=== PATIENT | female | born 1940 | race Caucasian/White ===

== ENCOUNTER → 2017-12-27 08:38 | Outpatient (CLI) | payer MEDICARE, SELFPAY ==
--- NOTE | 2017-12-27 08:45 | XR_ITS ---
XR DEXA axial skeleton HISTORY: ITS.REASON: OSTEOPENIA ORDERING PHYSICIAN: Nancy Lester MD PATIENT AGE: 77 years COMPARISON: 11/04/2011 FINDINGS: The BMD measured at the left femoral neck is 0.860 g/cm squared with a T score of T-1.3 . This is considered Osteopenic according to the World Health Organization criteria. Fracture risk is Moderate. Treatment is advised. The L1 L4 density has a T score of -1.1. There is an 5% increase in lumbar spine density and a 3% decrease in hip density compared to the previous exam. IMPRESSION: Osteopenia with moderate fracture risk. Recommend follow-up exam December 2019
--- NOTE | 2017-12-27 08:46 | MM_ITS ---
MM Dig screening mamm BI w/CAD CAD Screening COMPARISON: Digital mammograms 10/15/2013 and 05/11/2015 INDICATION: There is no personal or family history of breast cancer. There have been previous biopsies on each breast. TECHNIQUE: Standard CC and MLO images were obtained. R2 CAD reviewed. FINDINGS: Minimal stable fibroglandular densities are seen in the subareolar regions of both breasts. There are stable nodular densities in the upper outer quadrants of each breast. There is faint arterial calcification in each breast. There is a biopsy clip left breast and there are 2 biopsy clips right breast. There are benign-appearing calcifications in each breast. There are no suspicious microcalcifications. IMPRESSION: Stable exam with no suspicious lesion seen recommend yearly follow-up BI-RADS Category: 2 Benign Finding(s) RECOMMENDED FOLLOW-UP: 1YR - 1 YEAR FOLLOW-UP (A letter has been sent to the patient regarding results of the study.)
== END ==
PROVIDERS: PCP Family Medicine; Visit Provider Family Medicine
DX: M85.89 Other specified disorders of bone density and structure, multiple sites (principal); Z12.31 Encounter for screening mammogram for malignant neoplasm of breast
CPT/HCPCS: 77067; 77080

== ENCOUNTER → 2018-06-29 07:33 | Outpatient (CLI) | payer MEDICARE, SELFPAY ==
[2018-06-29 11:00] LABS: Alanine Aminotransferase 24 U/L (12-78); Albumin Level 3.9 gm/dL (3.4-5.0); Albumin/Globulin Ratio 1.1 (1.1-1.8); Alkaline Phosphatase 64 U/L (46-116); Anion Gap 10.7 mEq/L (5-15); Aspartate Amino Transferase 16 U/L (15-37); Bilirubin,Total 1.1 mg/dL (0.2-1.0); Blood Urea Nitrogen 20 mg/dL (7-18); Calcium 9.3 mg/dL (8.5-10.1); Carbon Dioxide 31 mmol/L (21.0-32.0); Chloride 106 mmol/L (98-107); Chol/HDL Ratio 3.8 (1-3.5); Cholesterol 145 mg/dL (140-200); Creatinine,Serum 0.87 mg/dL (0.55-1.02); Estimated Glomerular Filt Rate 63 ml/min (>60); GFR (African American) 76 ML/MIN (>60); Globulin 3.7 gm/dl (1.3-3.2); Glucose 111 mg/dL (74-106); HDL Cholesterol 38 mg/dL (29-89); LDL Cholesterol 82 mg/dL (0-130); Potassium 4.7 mmoL/L (3.5-5.1); Sodium 143 mmol/L (136-145); Thyroid Stimulating Hormone 3.39 uIU/ml (0.358-3.740); Total Protein,Serum 7.6 gm/dL (6.4-8.2); Triglycerides 127 mg/dL (30-200); VLDL Cholesterol 25 mg/dL (0-40)
== END ==
PROVIDERS: PCP Family Medicine; Visit Provider Physician Assistant
DX: E78.2 Mixed hyperlipidemia (principal); E03.9 Hypothyroidism, unspecified; I10 Essential (primary) hypertension
CPT/HCPCS: 36415; 80053; 80061; 84443

== ENCOUNTER → 2018-11-13 09:58 | Outpatient (POV) | payer MEDICARE, SELFPAY | PROVIDERS: Visit Provider Dermatology | DX: Z00.00 Encounter for general adult medical examination without abnormal findings (principal) ==

== ENCOUNTER 2018-11-20 09:20 | Outpatient (CLI) | payer MEDICARE, OTHER, SELFPAY ==
[2018-11-20 09:36] VITALS: BP 164/51; PULSE 57; RESP 18; TEMP 36.7; O2SAT 97
== END 2018-11-20 10:07 | disposition home or self-care (01) ==
LOC: INF 09:40
PROVIDERS: Visit Provider Physician Assistant
DX: M85.89 Other specified disorders of bone density and structure, multiple sites (principal)
CPT/HCPCS: 96372; J0897

== ENCOUNTER → 2018-12-24 13:51 | Outpatient (POV) | payer MEDICARE, SELFPAY | PROVIDERS: Visit Provider Nurse Practitioner Acute Care | DX: Z00.00 Encounter for general adult medical examination without abnormal findings (principal) ==

== ENCOUNTER 2019-06-11 10:02 | Outpatient (CLI) | payer MEDICARE, OTHER, SELFPAY ==
[2019-06-11 10:14] VITALS: BP 155/51; PULSE 54; RESP 18; TEMP 36.4; O2SAT 95
== END 2019-06-11 10:33 | disposition home or self-care (01) ==
LOC: INF 10:02
PROVIDERS: Visit Provider Physician Assistant
DX: M85.89 Other specified disorders of bone density and structure, multiple sites (principal)
CPT/HCPCS: 96372; J0897

== ENCOUNTER → 2020-08-12 14:34 | Outpatient (CLI) | payer MEDICARE, OTHER, SELFPAY ==
[2020-08-12 15:24] LABS: Basophils % 0.3 % (0.1-2.0); Eosinophils % 0.1 % (0.1-12.0); Hematocrit 49.6 % (37.0-47.0); Hemoglobin 16.3 g/dL (12.2-16.2); Lymphocytes # 2.6 K/mm3 (0.7-4.5); Lymphocytes % 19.1 % (10-50); Mean Corpuscular HGB Conc 32.9 g/dL (31.8-35.4); Mean Corpuscular Hemoglobin 28.7 pg (27.0-31.2); Mean Corpuscular Volume 87.4 fl (81-99); Mean Platelet Volume 8.4 fl (7.4-10.4); Monocytes # 0.7 K/mm3 (0.1-1.0); Monocytes % 5.1 % (1.7-9.3); Neutrophils # 10.3 K/mm3 (1.8-7.8); Neutrophils % 75.4 % (37.0-80.0); Platelet Count 336 K/mm3 (142-424); Red Blood Count 5.67 M/mm3 (4.20-5.40); Red Cell Distribution Width 13.5 % (11.5-17.5); White Blood Count 13.7 K/mm3 (4.8-10.8)
== END ==
PROVIDERS: Visit Provider Nurse Practitioner Family
DX: K52.9 Noninfective gastroenteritis and colitis, unspecified (principal)
CPT/HCPCS: 36415; 85025

== ENCOUNTER → 2021-09-01 11:09 | Outpatient (CLI) | payer MEDICARE, SELFPAY ==
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
== END ==
PROVIDERS: PCP Family Medicine; Visit Provider Family Medicine
DX: M79.672 Pain in left foot (principal)
CPT/HCPCS: 73630

== ENCOUNTER 2022-08-22 11:18 | Emergency (ER) | payer OTHER, MEDICARE, SELFPAY ==
[2022-08-22 11:20] VITALS: BP 144/58; PULSE 78; RESP 18; TEMP 36.7; O2SAT 95; BMI 32.8
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
--- NOTE | 2022-08-22 11:45 | PC.NURSE ---
ED MD AT BEDSIDE
--- NOTE | 2022-08-22 12:05 | PC.NURSE ---
PT TO XR/CT
--- NOTE | 2022-08-22 12:39 | PC.NURSE ---
PT MEDICATED PER EMAR, NO NEEDS AT THIS TIME. FAMILY AT BEDSIDE
[2022-08-22 12:45] VITALS: PULSE 74; O2SAT 96
[2022-08-22 13:00] VITALS: BP 144/66; PULSE 75; RESP 18; O2SAT 96
[2022-08-22 13:45] VITALS: BP 140/70; PULSE 80; RESP 18; O2SAT 95
[2022-08-22 14:00] VITALS: BP 173/85; PULSE 78; RESP 18; O2SAT 96
--- NOTE | 2022-08-22 14:17 | PC.NURSE ---
ED MD AT BEDSIDE TO DISCUSS POC WITH PT AND FAMILY
[2022-08-22 14:35] VITALS: BP 173/85; PULSE 78; RESP 18; TEMP 36.7; O2SAT 96
== END 2022-08-22 14:40 | disposition home or self-care (01) ==
PROVIDERS: Emergency Provider Emergency Medicine; PCP Emergency Medicine
DX: S42.211A Unspecified displaced fracture of surgical neck of right humerus, initial encounter for closed fracture (principal); V43.53XA Car driver injured in collision with pick-up truck in traffic accident, initial encounter; Z79.02 Long term (current) use of antithrombotics/antiplatelets; Z79.899 Other long term (current) drug therapy; I48.91 Unspecified atrial fibrillation
CPT/HCPCS: 70450; 72125; 73030; 73060; 73090; 96372; 99285

== ENCOUNTER 2022-08-25 11:36 | Emergency (ER) | payer OTHER, MEDICARE, SELFPAY ==
[2022-08-25 12:22] VITALS: BP 98/55; PULSE 93; RESP 18; TEMP 36.8; O2SAT 97; BMI 32.8
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
[2022-08-25 12:29] LABS: Microscopic, Urine URINE MICROSCOPIC (MICROSCOPIC)
[2022-08-25 12:31] VITALS: BP 108/54; PULSE 89; O2SAT 92
[2022-08-25 12:31] LABS: Appearance,Urine CLEAR (Clear); Bilirubin,Urine Negative (Negative); Blood, Urine 3+ (Negative); Color,Urine YELLOW (Yellow); Glucose,Urine (UA) Negative (Negative); Ketones,Urine TRACE (Negative); Leukocyte Esterase,Urine Negative (Negative); Nitrate,Urine Negative (Negative); Protein,Urine Negative (Negative); Specific Gravity, Urine 1.025 (1.005-1.030)
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
[2022-08-25 12:45] VITALS: BP 120/48; PULSE 84; RESP 20; O2SAT 93
[2022-08-25 12:47] LABS: Bacteria,Urine 1+ /lpf; Mucus,Urine Trace /lpf; RBC,Urine Occasional #/hpf (0-3)
[2022-08-25 13:11] LABS: Basophils # 0.1 K/mm3 (0-0.2); Basophils % 0.6 % (0.1-2.0); Eosinophils # 0.1 K/mm3 (0.0-0.4); Eosinophils % 0.6 % (0.1-12.0); Hematocrit 38.5 % (37.0-47.0); Hemoglobin 12.4 g/dL (12.2-16.2); Lymphocytes % 18.3 % (10-50); Mean Corpuscular HGB Conc 32.3 g/dL (31.8-35.4); Mean Corpuscular Hemoglobin 28.5 pg (27.0-31.2); Mean Corpuscular Volume 88.3 fl (81-99); Mean Platelet Volume 9.2 fl (7.4-10.4); Monocytes # 0.8 K/mm3 (0.1-1.0); Monocytes % 4.8 % (1.7-9.3); Neutrophils # 12.4 K/mm3 (1.8-7.8); Neutrophils % 75.7 % (37.0-80.0); Platelet Count 304 K/mm3 (142-424); Red Blood Count 4.36 M/mm3 (4.20-5.40); Red Cell Distribution Width 13.9 % (11.5-17.5); White Blood Count 16.4 K/mm3 (4.8-10.8)
[2022-08-25 13:14] LABS: MANUAL DIFFERENTIAL MANUAL DIFFERENTIAL (MANUAL DIFF)
[2022-08-25 13:29] LABS: Chloride 96 mmol/L (98-107); Potassium 3.9 mmoL/L (3.5-5.1); Sodium 132 mmol/L (136-145)
[2022-08-25 13:31] LABS: Blood Urea Nitrogen 35 mg/dl (7-17); Creatinine Clearance Estimated 50 mL/min (50-200); Estimated Glomerular Filt Rate 60 ml/min (>60); GFR (African American) 72 ML/MIN (>60)
[2022-08-25 13:32] LABS: Alanine Aminotransferase 26 U/L (12-78); Albumin Level 3.7 g/dl (3.5-5.0); Albumin/Globulin Ratio 1.2 (1.1-1.8); Alkaline Phosphatase 53 U/L (38-126); Anion Gap 12.9 mEq/L (5-15); Aspartate Amino Transferase 38 U/L (14-36); Bilirubin,Total 2.2 mg/dl (0.2-1.3); Calcium 8.9 mg/dl (8.4-10.2); Carbon Dioxide 27 mmol/L (22.0-30.0); Glucose 117 mg/dl (74-100); Total Protein,Serum 6.7 g/dl (6.3-8.2)
[2022-08-25 13:36] LABS: Lymphocytes % 15 % (10-50); Monocytes % 3 % (2-9); Neutrophils % 82 % (42-76); Platelet Estimate Normal; RBC Morphology Normal; Total Cells Counted 100
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
[2022-08-25 16:07] LABS: Occult Blood,Stool Positive (Negative)
[2022-08-25 16:56] VITALS: BP 120/50; PULSE 84; RESP 20; TEMP 36.8; O2SAT 96
== END 2022-08-25 16:57 | disposition home or self-care (01) ==
PROVIDERS: Emergency Provider Student in an Organized Health Care Education/Training Program; PCP Emergency Medicine
DX: K92.1 Melena (principal); M25.511 Pain in right shoulder; R07.81 Pleurodynia; R42 Dizziness and giddiness; R19.7 Diarrhea, unspecified; D72.829 Elevated white blood cell count, unspecified; R10.11 Right upper quadrant pain; R11.0 Nausea; I10 Essential (primary) hypertension; I48.91 Unspecified atrial fibrillation; E78.5 Hyperlipidemia, unspecified; J90 Pleural effusion, not elsewhere classified; Z79.01 Long term (current) use of anticoagulants; Z79.1 Long term (current) use of non-steroidal anti-inflammatories (NSAID); Z79.899 Other long term (current) drug therapy
CPT/HCPCS: 71045; 71260; 74177; 80053; 81001; 82272; 85007; 85025; 96361; 96374; 96375; 99285; G0328; J2405; Q9967

== ENCOUNTER 2022-08-27 10:34 | Emergency (ER) | payer MEDICARE, SELFPAY ==
[2022-08-27] VITALS (49 sets, daily range): BP systolic 0–222; BP diastolic 0–110; PULSE 0–107; RESP 0–24; TEMP -17.7–35.7; O2SAT 0–99; BMI 25.7; BMI 25.8
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
[2022-08-27 11:03] LABS: Basophils # 0.1 K/mm3 (0-0.2); Basophils % 0.6 % (0.1-2.0); Eosinophils # 0.1 K/mm3 (0.0-0.4); Eosinophils % 0.4 % (0.1-12.0); Lymphocytes # 5.8 K/mm3 (0.7-4.5); Lymphocytes % 28.7 % (10-50); Mean Corpuscular HGB Conc 31.8 g/dL (31.8-35.4); Mean Corpuscular Hemoglobin 28.6 pg (27.0-31.2); Mean Platelet Volume 9.4 fl (7.4-10.4); Monocytes # 0.8 K/mm3 (0.1-1.0); Monocytes % 3.8 % (1.7-9.3); Neutrophils # 13.5 K/mm3 (1.8-7.8); Neutrophils % 66.4 % (37.0-80.0); Platelet Count 387 K/mm3 (142-424); Red Blood Count 2.25 M/mm3 (4.20-5.40); Red Cell Distribution Width 14.3 % (11.5-17.5); White Blood Count 20.3 K/mm3 (4.8-10.8)
[2022-08-27 11:12] LABS: Hemoglobin 6.4 g/dL (12.2-16.2)
--- NOTE | 2022-08-27 11:12 | PC.NURSE ---
1111 CRITICAL H&H RECEIVED FROM LOUDON AT THIS TIME. 6.02/02.3 PT NAME AND R/V. DR. WILLIAM NOTIFIED AT THIS TIME
[2022-08-27 11:13] LABS: Hematocrit 20.3 % (37.0-47.0)
[2022-08-27 11:14] LABS: MANUAL DIFFERENTIAL MANUAL DIFFERENTIAL (MANUAL DIFF)
--- NOTE | 2022-08-27 11:15 | PC.NURSE ---
JAMI MCCULLOUGH at for central line placement warm blankets on pt.
[2022-08-27 11:24] LABS: Chloride 101 mmol/L (98-107); Sodium 132 mmol/L (136-145)
[2022-08-27 11:26] LABS: Alanine Aminotransferase 22 U/L (12-78); Alkaline Phosphatase 33 U/L (38-126); Aspartate Amino Transferase 31 U/L (14-36); Creatinine Clearance Estimated 37 mL/min (50-200); Estimated Glomerular Filt Rate 39 ml/min (>60); GFR (African American) 47 ML/MIN (>60)
[2022-08-27 11:27] LABS: Albumin Level 2.7 g/dl (3.5-5.0); Albumin/Globulin Ratio 1.3 (1.1-1.8); Calcium 7.9 mg/dl (8.4-10.2); Carbon Dioxide 16 mmol/L (22.0-30.0); Globulin 2.1 g/dL (1.3-3.2); Glucose 153 mg/dl (74-100); Lipase 431 U/L (23-300); Total Protein,Serum 4.8 g/dl (6.3-8.2)
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
[2022-08-27 11:32] LABS: Blood Urea Nitrogen 115 mg/dl (7-17); C-Reactive Protein 70.9 mg/L (0-4)
[2022-08-27 11:36] LABS: Lymphocytes % 29 % (10-50); Monocytes % 2 % (2-9); Neutrophils % 69 % (42-76); Total Cells Counted 100
[2022-08-27 11:38] LABS: Platelet Estimate Normal; RBC Morphology Normal
--- NOTE | 2022-08-27 11:40 | PC.NURSE ---
Critical lab values given to Dr Huang at 1134 face to face K+ 6.0 (verified with lab that specimen was no hemolyzed) BUN 115 Cre 1.3
--- NOTE | 2022-08-27 12:11 | ECG_ITS ---
APPROVED REPORT Exam: Resting ECG HR:76 bpm ECG Measurements Heart Rate 76 AXES QRSd 98 QRS 52 QT 411 T 254 QTc [address] DEVIATION AND MODERATE T-WAVE ABNORMALITY, CONSIDER INFERIOR ISCHEMIA [-0.1+ mV T-WAVE IN II/aVF] ABNORMAL ECG UNCONFIRMED REPORT Electronically signed by : Cole Lopez MD 09/01/2022 21:19:03
--- NOTE | 2022-08-27 12:35 | PC.NURSE ---
RECTAL TEMP of 95.3. pt currently has warming blanket(xavier hugger) on
--- NOTE | 2022-08-27 12:41 | PC.NURSE ---
1241 CRITICAL LACTIC 8.2 RECEIVED FROM ROBBINS IN LAB. PT PRACHI AND R/V. DR. BUNDY NOTIFIED
[2022-08-27 12:42] LABS: Lactic Acid 8.2 mmol/L (0.7-2.1)
--- NOTE | 2022-08-27 12:54 | PC.NURSE ---
NONA MCCULLOUGH SPEAKING WITH DR. FLOYD
--- NOTE | 2022-08-27 13:11 | PC.NURSE ---
Placed call to [facility] for transferring pt to [facility]. Had CT to [facility] images to , was told they would call back after images were viewed by hospitalist
--- NOTE | 2022-08-27 13:12 | PC.NURSE ---
lab called stating blood is ready for pt. supervisor cigar making hand is aware, will get blood for pt as soon as possible.
--- NOTE | 2022-08-27 13:38 | PC.NURSE ---
pt daughter updated dr. moscoso was spoken to by ER , ER states dr. moscoso stated pt would need to transferred to another facility
--- NOTE | 2022-08-27 13:46 | PC.NURSE ---
[facility] calling back at this time, speaking with MITCHELL
--- NOTE | 2022-08-27 14:09 | PC.NURSE ---
pt accepted to ICU, waiting construction safety manager back with room assignment
--- NOTE | 2022-08-27 14:09 | PC.NURSE ---
[facility] reported that pt would be direct admit to [facility]
--- NOTE | 2022-08-27 14:33 | PC.NURSE ---
bed assignment received at this time. Spoke with Samaria at transfer center. pt assigned to [facility] floor [address] ICU bed 138 number for report [phone] laguna
--- NOTE | 2022-08-27 15:05 | PC.NURSE ---
report called to Odette Vicente RN at ICU at this time
--- NOTE | 2022-08-27 15:12 | PC.NURSE ---
[facility] notified of transport, states will transport pt will a truck is available.
--- NOTE | 2022-08-27 15:55 | PC.NURSE ---
pt depends changed at this time, pt repositioned in bed, pt daughter at BS
[2022-08-27 16:17] LABS: Reflex Lactic Add Lactic Reflex
--- NOTE | 2022-08-27 16:21 | PC.NURSE ---
in room checking on pt, pt is noticeably working harder to breath, Pt on O2 @ 2L per NC, SaO2 98% on RA, LS clear, fine crackles noted in R lung base. Pt HR is 107, pt diaphoretic. Called ER MD to BS to assess pt. ER MD gave verbal order for repeat portable chest xray
--- NOTE | 2022-08-27 16:23 | XR_ITS ---
PROCEDURE INFORMATION: Exam: XR Chest Exam date and time: 08/27/2022 4:35 PM Age: 82 years old Clinical indication: Shortness of breath; Additional info: SOB TECHNIQUE: Imaging protocol: Radiologic exam of the chest. Views: 1 view. COMPARISON: CR XR CHEST PORTABLE 08/27/2022 11:43 AM FINDINGS: Tubes, catheters and devices: Left-sided central catheter is in place with the tip overlying the right atrium. Lungs: Patchy airspace opacity consistent with pneumonia present within the right lung base. Pleural spaces: Right pleural effusion. Heart/Mediastinum: Large hiatal hernia/intrathoracic stomach. Heart demonstrates mild diffuse enlargement. Bones/joints: The thoracic spine demonstrates mild degenerative changes at multiple levels. IMPRESSION: 1. Left-sided central catheter is in place with the tip overlying the right atrium. 2. Large hiatal hernia/intrathoracic stomach. 3. Patchy airspace opacity consistent with pneumonia present within the right lung base. 4. Mild cardiomegaly. 5. Right pleural effusion.
--- NOTE | 2022-08-27 16:27 | PC.NURSE ---
rad at BS for portable xray
--- NOTE | 2022-08-27 16:42 | PC.NURSE ---
Staff at BS, called out for help, when I arrived at BS pt having agonal respirations, pt diaphoretic in nature, pt bradycardic on monitor. 1645- no pulse cpr started. 1647- pulse check, no pulse 1650- NS infusing per IV, EPI 1651- pulse check, no pulse 1653- epi given 1655- intubated per ER MD + color change noted, chantal breath sounds auscultated 1656- 1 am bicarb 1657- pulse check, no pulse 1658-epi given 1700- pulse check, + pulse noted 1702- 2nd unit of blood started at wide open rate, verified with bobbyrn 1703-Levophed drip started at 20 mcg/min 1710-Versed 5 mg IV given 1711-fsbs 102, hooked up to vent 1712- killian catheter placed 1728- art line placed L wrist per ER
[2022-08-27 17:29] LABS: POC Glucose,Bedside 102 (70-110)
--- NOTE | 2022-08-27 17:35 | XR_ITS ---
PROCEDURE INFORMATION: Exam: XR Chest Exam date and time: 08/27/2022 5:48 PM Age: 82 years old Clinical indication: Device placement; Ett placement (vent status); Additional info: Post intubation film TECHNIQUE: Imaging protocol: Radiologic exam of the chest. Views: 1 view. COMPARISON: CR XR CHEST PORTABLE 08/27/2022 4:35 PM FINDINGS: Tubes, catheters and devices: Endotracheal tube is in place with the tip 3.4 cm above the level of the gadiel. Nasogastric tube is in place with the tip overlying the stomach. Left-sided central catheter is in place with the tip in the superior vena cava. Lungs: Right lower lobe pneumonia is noted. Pleural spaces: Right pleural effusion. Heart/Mediastinum: Heart demonstrates mild diffuse enlargement. Large hiatal hernia/partial intrathoracic stomach. Bones/joints: Unremarkable. IMPRESSION: 1. Endotracheal tube is in place with the tip 3.4 cm above the level of the gadiel. 2. Mild cardiomegaly. 3. Right lower lobe pneumonia is noted. 4. Large hiatal hernia/partial intrathoracic stomach. 5. Right pleural effusion.
--- NOTE | 2022-08-27 17:52 | PC.NURSE ---
calling [facility] for pulm
--- NOTE | 2022-08-27 17:56 | PC.NURSE ---
JAMI MCCULLOUGH speaking with [facility] at this time giving update on pt.
--- NOTE | 2022-08-27 18:26 | PC.NURSE ---
EMERGENT ORDER RECEIVED FROM DR. BUNDY TO TRANSFUSE BLOOD 2 UNITS, EMERGENCY RELEASE
--- NOTE | 2022-08-27 18:29 | PC.NURSE ---
called [facility] gave updated report to Odette Gray,SAPPHIRE at this time [facility] is in route to hospital to transport pt.
--- NOTE | 2022-08-27 19:22 | PC.NURSE ---
1916- CPR stopped at this time per ER MD order, family at BS, pt still on ventilator. Levophed drip still running, 4th unit of blood infusing
--- NOTE | 2022-08-27 19:26 | PC.NURSE ---
robby, sociology adjunct instructor notified
--- NOTE | 2022-08-27 19:34 | PC.NURSE ---
late entry: 1908 no pulse detected/compressions started 1909 epi administered 1910 pulse check, no pulse compressions resumed 1910 respiratory at bedside 1913 pulse check, no pulse detected. compressions resumed 1913 epi administered 1915 pulse check, no pulse detected. compressions resumed 1916 CPR stopped per .
--- NOTE | 2022-08-27 19:53 | PC.NURSE ---
late entry: pt started on vasopressin drip at 1840 drip started at 0.03units/min pt had been started on dobuatmine drip at 1900, drip started at a max rate of 45ml/hr per direction of ER MD. family and MD at bedside. pt bp on art line noted to be dropping. pt was checked for pulse at 1909.
--- NOTE | 2022-08-27 20:26 | PC.NURSE ---
sanjiv contacted spoke with osito gonzales states not following pt.
--- NOTE | 2022-08-28 09:46 | PC.NURSE ---
late entry: 195608/27/22- ER at , pt family at . ER called TOD at 1956. ventilator turned off, IV infusions stopped (blood, levophed, vasopressin and IVF).
--- NOTE | 2022-08-28 09:52 | PC.NURSE ---
late entry: 08/27/22 approx 1900- ER MD at speaking with pts family regarding pt status and POC for pt, pt was becoming bradycardic and bp dropping 1908- cpr started, no pulse, pt removed from ventilator and being ventilated per ambu bag 1909- epi given per IV 1910- pulse check, no pulse, cpr resumed 1913- pulse check, no pulse, epi given, cpr resumed 1915- pulse check, no pulse, cpr resumed 1916- cpr stopped per ER MD request after speaking with family again, ventilator to be kept on at this per ER MD
--- NOTE | 2022-08-28 19:20 | PC.NURSE ---
Late Entry: Emergent release blood received from Audie Phillip in lab at 1840. unit [id number] started 184 unit ended 1900 unit [id number] started 190 stopped 191
[2022-08-28 19:37] VITALS: BP 63/28; PULSE 72; RESP 18; TEMP 35.1; O2SAT 85
[2022-08-28 19:51] VITALS: BP 71/46; PULSE 71; RESP 18; TEMP 35.1; O2SAT 89
== END 2022-08-27 21:17 | disposition expired ==
PROVIDERS: Emergency Provider Student in an Organized Health Care Education/Training Program; PCP Emergency Medicine
DX: J96.21 Acute and chronic respiratory failure with hypoxia (principal); R57.8 Other shock; K92.2 Gastrointestinal hemorrhage, unspecified; Z79.01 Long term (current) use of anticoagulants; I48.91 Unspecified atrial fibrillation; E78.5 Hyperlipidemia, unspecified; I10 Essential (primary) hypertension
CPT/HCPCS: 31500; 36415; 36430; 71045; 71275; 74174; 80053; 82962; 83605; 83690; 85007; 85025; 86140; 86850; 92950; 93005; 96365; 96366; 96367; 96368; 96375; 99291; 99292; J0696; P9016; Q9967